=== PATIENT | female | born 1955 | race Caucasian/White ===

== ENCOUNTER 2017-05-31 09:25 | Inpatient (IN) | payer OTHER ==
[~2017-05-31] VITALS: Ht 165.1 cm; Wt 94.8 kg
[~2017-05-31 09:25] MED LIST: ASPIR 8181 MG; EVISTA60 MG; HYZAAR 100-121 UDTAB; LIPITOR20 MG
[2017-05-31] MEDS ORDERED: DICY20TA (09:49)
== END 2017-06-04 18:36 | disposition home health service (06) | DRG 392 ==
LOC: ER 09:25 → MEDI 19:49 → SEC-K 19:49 → MEDI 20:09
PROC: BW21Y0Z Computerized Tomography (CT Scan) of Abdomen and Pelvis using Other Contrast, Unenhanced and Enhanced (ICD-10-PCS; principal; 2017-05-31)
DX: K57.32 Diverticulitis of large intestine without perforation or abscess without bleeding (principal); I10 Essential (primary) hypertension; E78.4 Other hyperlipidemia

== ENCOUNTER 2019-02-02 13:33 | Emergency (ER) | payer OTHER ==
[~2019-02-02] VITALS: Ht 162.6 cm; Wt 93.9 kg
[~2019-02-02 13:33] MED LIST changes: +DICY20TA
== END 2019-02-02 14:40 | disposition home or self-care (01) ==
LOC: ER 13:33
DX: K80.18 Calculus of gallbladder with other cholecystitis without obstruction (principal)

== ENCOUNTER 2023-05-21 13:14 | Outpatient (CLI) | payer OTHER | END 2023-05-21 13:30 | disposition home or self-care (01) | LOC: MRI 13:14 | PROVIDERS: ATTEND Internal Medicine | DX: M25.511 Pain in right shoulder (principal) | CPT/HCPCS: 73221 ==